=== PATIENT | female | born 1990 | race Hispanic/Latino ===

== ENCOUNTER → 2024-11-03 | Outpatient (CLI) | payer BC ==
[~2024-11-03] MED LIST: GADOTERATE MEGLUMINE 10 MMOL/20 ML VIAL IV ONE
--- NOTE | 2024-11-04 07:14 | HMCIMG ---
EXAM: MR Abdomen with and without Intravenous Contrast. CLINICAL HISTORY: ABD PAIN TECHNIQUE: Multisequence, multiplanar magnetic resonance images of the abdomen with and without intravenous contrast. CONTRAST: None. COMPARISON: None provided. FINDINGS: LOWER THORAX: No pleural effusion. LIVER: Mild hepatomegaly; the right hepatic lobe measures up to 20.5 cm in craniocaudal dimension. Hepatic steatosis. GALLBLADDER AND BILE DUCTS: No gallstone or ductal stone seen. No biliary ductal dilatation is evident. PANCREAS: Unremarkable. No ductal dilation. SPLEEN: Unremarkable. ADRENALS: Unremarkable. KIDNEYS: The kidneys appear within normal limits. No hydronephrosis or mass evident. STOMACH AND BOWEL: Limited evaluation of the stomach and bowel demonstrates no acute process. LYMPH NODES: No lymphadenopathy is evident. VASCULATURE: No abdominal aortic aneurysm. IMPRESSION: No acute intra-abdominal abnormality. Mild hepatomegaly with diffuse steatosis. /Vanessa
== END | disposition home or self-care (01) ==
LOC: RAH 08:03
PROVIDERS: ATTEND Internal Medicine Gastroenterology
DX: R16.0 Hepatomegaly, not elsewhere classified (principal); K76.0 Fatty (change of) liver, not elsewhere classified; R10.9 Unspecified abdominal pain; R93.2 Abnormal findings on diagnostic imaging of liver and biliary tract
CPT/HCPCS: 74183; A9575